=== PATIENT | female | born 1960 | race Caucasian/White ===

== ENCOUNTER 2020-01-22 06:50 | Observation (INO) ==
[2020-01-22] MEDS ORDERED: fentaNYL citrate 100 MCG/2 ML VIAL ONE (07:21)
[2020-01-22] MEDS ORDERED: HEPARIN (PORCINE) 1000 UNIT/ML 10 ML (CATH LAB USE ONLY) ONE (07:21)
[2020-01-22] MEDS ORDERED: NiCARDipine HCL INJ 2.5 MG/ML 10 ML AMP ONE (07:21)
[2020-01-22] MEDS ORDERED: NITROGLYCERIN/D5W 100MCG/ML 20ML SYR ONE (07:22)
[2020-01-22] MEDS ORDERED: MIDAZOLAM HCL 1 MG/ML 2ML VIAL ONE (07:22)
--- NOTE | 2020-01-22 07:42 | History & Physical Report ---
Date of Service January 22, 2020 Assessment & Plan (1) Abnormal stress echocardiogram: (2) Chest pain: (3) Diabetes: The patient is here today for cardiac catheterization. I have explained the risk, benefit and intent of the procedure to her including the potential for catheter-based intervention such as balloon angioplasty or intracoronary stent. She understands the procedure and we will proceed this morning for completion. History of Present Illness Primary Care Provider: Sharon Caldera MD This is a 59-year-old diabetic female who is been experiencing chest pain for several months. In September she underwent an exercise stress echocardiogram with reduced exercise performance and an equivocal study. She then went on to have a cardiac CT angios performed which showed calcified coronary arteries however the CT FFR could not be completed because of artifact. There was some delay in proceeding to cardiac catheterization due to COVID however, she is here today to have that procedure completed. She is still experiencing some dyspnea on exertion and chest discomfort with activity but it has not progressed. She denies orthopnea, lower extremity edema, heart palpitations or tachycardia. Allergies Allergy/AdvReac Type Severity Reaction Status Date / Time cefprozil [From Cefzil] Allergy Hives Verified 01/22/20 07:13 ciprofloxacin Allergy Hives Verified 01/22/20 07:13 Iodinated Contrast Media Allergy Hives Verified 01/22/20 07:13 [Iodinated Contrast- Oral and IV Dye] lisinopril Allergy Cough Verified 01/22/20 07:13 meloxicam [From Mobic] AdvReac Unknown Verified 01/22/20 07:13 Home Medications Home Medications Medication Instructions Recorded Confirmed Type atorvastatin 40 mg tablet 40 mg PO DAILY #90 tab 04/09/19 01/22/20 Rx metformin 500 mg tablet,extended 1,000 mg PO BID #360 tab 04/09/19 01/22/20 Rx release 24 hr levothyroxine 50 mcg tablet 50 mcg PO DAILY #90 tab 07/02/19 01/22/20 Rx cyclobenzaprine 10 mg tablet 10 mg PO TID PRN #90 tab 09/19/19 01/22/20 Rx losartan 50 mg tablet 50 mg PO DAILY #90 tab 10/02/19 01/22/20 Rx ipratropium 20 mcg-albuterol 100 1 puffs INH Q4H #3 ea 10/15/19 01/22/20 Rx mcg/actuation mist for inhalation amiloride 5 mg tablet 10 mg PO DAILY #180 tab 12/19/19 01/22/20 Rx metoprolol tartrate 25 mg tablet 25 mg PO BID #180 tab 12/19/19 01/22/20 Rx pantoprazole 40 mg tablet,delayed 40 mg PO DAILY #90 tab 12/19/19 01/22/20 Rx release escitalopram oxalate 5 mg tablet 5 mg PO DAILY #90 tab 12/24/19 01/22/20 Rx blood sugar diagnostic ea 01/08/20 01/08/20 History hydrocodone 5 mg-acetaminophen 325 1 tab PO TID PRN #90 tab 01/08/20 01/22/20 Rx mg tablet lancets 33 gauge ea 01/08/20 01/08/20 History ferrous sulfate [iron] 65 mg PO DAILY 01/22/20 01/22/20 History magnesium oxide 400 mg PO DAILY 01/22/20 01/22/20 History omega 2-ses-mfy-fish oil [Fish Oil] 1 cap PO DAILY 01/22/20 01/22/20 History vitamin P56-vysvd acid 1 tab PO DAILY 01/22/20 01/22/20 History Past Med/Surg History Medical History Acid reflux (Chronic) Allergic conjunctivitis (Chronic) Allergic rhinitis (Chronic) Anxiety (Chronic) Asthma (Chronic) Basal cell carcinoma of skin (Chronic) Benign essential hypertension (Chronic) Bulging lumbar disc (Chronic) Cervicalgia (Chronic) Complicated migraine (Chronic) Diabetes mellitus (Chronic) Diverticulosis of colon (Chronic) Hyperlipidemia (Chronic) Hypomagnesemia (Chronic) Hypothyroidism (Chronic) Left ankle pain Migraine headache (Chronic) Obstructive sleep apnea (Chronic) Surgical History H/O arthroscopic knee surgery H/O colonoscopy H/O dilation and curettage History of nasal surgery S/P cholecystectomy S/P hysterectomy Family History Mother Alzheimer disease Colonic polyp Brother Colonic polyp Father COPD (chronic obstructive pulmonary disease) Social History Beliefs That Will Affect Care: None marital status: Current Living Situation: Spouse Feels Safe at Home: Yes Safety Concerns: Feels Safe At This Time Smoking Status: Never smoker Hx Alcohol Use: Yes Alcohol Intake Frequency: Rarely Hx Substance Use: No Dental Care, Regularly: Yes Physical Activity Frequency: Does not Exercise Seatbelt Use: always Review of Systems Review of Systems: All systems reviewed & are unremarkable except as noted in HPI & below Nothing additional Physical Exam Physical Exam: General: no acute distress and stated age Head: normocephalic, no masses, lesions, tenderness or abnormalities Eyes: conjunctiva are pink and non-injected, sclera clear Neck: supple, no adenopathy, no bruits, normal jugular venous pulse, no hepa tojugular reflux Chest: normal shape and normal respiratory effort Lungs: clear to auscultation and percussion Cardiac Exam: - regular rate & rhythm, no murmurs gallops or rubs - normal S1, normal S2 Pulses: 2(+) throughout Abdomen: abdomen soft, non-tender, no abnormal masses and no hepatosplenomegaly Musculoskeletal: no gait disturbance, no joint inflammation, no deforming arthritis Extremities: no edema and no cyanosis Neuro: grossly normal exam Results & Data Results & Data ([facility]) Vital Signs (Past 12 Hours) Vital Signs Temp Pulse Resp BP Pulse Ox 01/22/20 06:59 36.9 C 77 17 183/88 H 98 Medications Administered Medications atorvastatin 40 mg tablet 40 mg PO DAILY #90 tab 04/09/19 [Rx Confirmed 01/22/20] metformin 500 mg tablet,extended release 24 hr 1,000 mg PO BID #360 tab 04/09/19 [Rx Confirmed 01/22/20] levothyroxine 50 mcg tablet 50 mcg PO DAILY #90 tab 07/02/19 [Rx Confirmed 01/22/20] cyclobenzaprine 10 mg tablet 10 mg PO TID PRN #90 tab 09/19/19 [Rx Confirmed 01/22/20] losartan 50 mg tablet 50 mg PO DAILY #90 tab 10/02/19 [Rx Confirmed 01/22/20] ipratropium 20 mcg-albuterol 100 mcg/actuation mist for inhalation 1 puffs INH Q4H #3 ea 10/15/19 [Rx Confirmed 01/22/20] amiloride 5 mg tablet 10 mg PO DAILY #180 tab 12/19/19 [Rx Confirmed 01/22/20] metoprolol tartrate 25 mg tablet 25 mg PO BID #180 tab 12/19/19 [Rx Confirmed 01/22/20] pantoprazole 40 mg tablet,delayed release 40 mg PO DAILY #90 tab 12/19/19 [Rx Confirmed 01/22/20] escitalopram oxalate 5 mg tablet 5 mg PO DAILY #90 tab 12/24/19 [Rx Confirmed 01/22/20] blood sugar diagnostic ea 01/08/20 [History Confirmed 01/08/20] hydrocodone 5 mg-acetaminophen 325 mg tablet 1 tab PO TID PRN #90 tab 01/08/20 [Rx Confirmed 01/22/20] lancets 33 gauge ea 01/08/20 [History Confirmed 01/08/20] ferrous sulfate [iron] 65 mg PO DAILY 01/22/20 [History Confirmed 01/22/20] magnesium oxide 400 mg PO DAILY 01/22/20 [History Confirmed 01/22/20] omega 8-xxj-vmu-fish oil [Fish Oil] 1 cap PO DAILY 01/22/20 [History Confirmed 01/22/20] vitamin D32-wnruo acid 1 tab PO DAILY 01/22/20 [History Confirmed 01/22/20] Home Medications Sodium Chloride (Nss 1000ml) 1,000 mls @ 1 mls/hr IV .Q24H ENMA Stop: 02/21/20 07:44
[2020-01-22] MEDS ORDERED: SODIUM CHLORIDE 0.9% 1000ML 1,000 ML IV SCH ×2 (07:45→09:30)
--- NOTE | 2020-01-22 08:54 | Cardiac Catheterization ---
Date of Service January 22, 2020 Cardiac Cath Report Cardiac Cath Report Procedure: 1. Coronary angiography History: This is a 59-year-old diabetic female who began to have chest pain and dyspnea on exertion in September. She had an equivocal exercise stress test due to low workload. She went on to have a cardiac CT Angio which was limited by calcified coronary arteries and an equivocal FFR. She has been referred for cardiac catheterization. Procedure summary: After informed consent was obtained. The patient was brought to the cardiac catheterization lab where she was prepped and draped in the usual manner for a right transradial approach. Preformed 5 Icelandic diagnostic catheters were utilized for the coronary angiograms. Following the procedure the patient underwent coronary intervention and then was admitted in stable condition. ACC data: Start time 8:15 AM End time 8:30 AM Opening aortic pressure 169/105 Closing aortic pressure 162/103 LV pressurevalve not crossed Sedation 1 mg intravenous Versed IV fluid 29 cc normal saline Contrast 64 cc Optiray Fluoroscopy time 2.2 minutes Radiation 770 mGy DAP 52.8 Codominant system AUC score 7 Coronary angiography: Selective injections of the left coronary artery revealed the left main trunk to be patent. There is evidence of calcium in the proximal and mid LAD. In the midportion of the LAD there is an 80% concentric stenosis and then more distal there is a 40 to 60% stenoses with the remainder the artery being patent. The LAD gives off several large septal branches as well as at least 2 diagonal branches. The left circumflex artery consists of 2 large marginal branches the second of which supplies a portion of the posterior septum. Left circumflex artery is widely patent. Selective injections of the right coronary artery reveal minor luminal irregularities with the artery being widely patent. There is evidence of collateral flow to the LAD from the distal right coronary artery. This is a codominant system. Summary: The patient has a high-grade stenosis within the proximal or mid LAD as well as a second stenosis which does not appear as tight in the mid to distal portion of the LAD. The significance of the stenoses is evident by the collateral flow from the distal right coronary artery to the LAD. Recommendations: Recommendations are for coronary intervention on the LAD.
[2020-01-22] MEDS ORDERED: CLOPIDOGREL BISULFATE 300 MG TAB ONE (09:12)
--- NOTE | 2020-01-22 09:15 | Post Anesthesia Assessment ---
Date of Service January 22, 2020 Post Sedation Assessment Vital Signs Temp Pulse Resp BP Pulse Ox 01/22/20 06:59 98.4 F 77 17 183/88 H 98 Recovery Score Activity: Moves 4 extremities Respiration: Deep Breath/Cough Circulation: +/-20% PreAnes Value Consciousness: Fully Awake Oxygen Saturation: O2 needed for >90% Discharge Sedation Level of Care: Fast Track Phase II Post Sedation Plan On clinical assessment, the patient appears to have tolerated the sedation without complications. Patient is recovering as anticipated. Patient will continue to be monitored by nursing and may be discharged when sedation discharge criteria are met per below protocol. Upon Completions of procedure up to 15 minutes continue every 5 minute vital signs and the P.A.R. score; then discharge to a Phase I or Fast Track to Phase II per the following guidelines: * Discharge Patient to appropriate Phase II area if PAR is 8 or greater or return to pre- procedure baseline. The post - procedure orders will be as directed. * If PAR score is less than 8 or not return to pre-procedure baseline then patient will follow Phase I monitoring till PAR is reached for Phase II. The Phase I may be done in procedure room or may call to secure a Phase I area. * If naloxone or flumazenil are used for reversal, hold in Phase I for continued monitoring from when last reversal dose was given for a minimum of 60 minutes or longer pending the nurse and/or physician discretion of patient condition before discharge to Phase II. Please call the Sedation Physician to re-evaluate and complete post-note for discharge to Phase II area. Do NOT discharge from procedure sedation or Phase 1 until post- sedation evaluation note is complete by procedure /sedation MD Sedation Discharge Instructions to be given to the patient at discharge to home.
[2020-01-22] MEDS ORDERED: NITROGLYCERIN SL 0.4 MG/TAB TAB SL PRN (09:16)
[2020-01-22] MEDS ORDERED: ONDANSETRON INJ 2 MG/ML 2 ML VIAL IV PRN (09:16)
--- NOTE | 2020-01-22 09:26 | Cardiac Catheterization ---
[facility] Data: Business Unit Director Cardiac Status Clinical evaluation leading to the procedure CAD Presenation: Positive Stress Test Anginal Classification: CCS III Heart Failure: No Cardiogenic Shock within 24 Hours: No Cardiac Arrest within 24 Hours: No Imaging Studies Past 6 Months: Yes Stress Studies Past 6 Months: Yes Stress Echocardiogram: Yes - Indeterminant Diagnostic Physicians Name: Adriano Beebe MD Status: Elective Closure Device Percutaneous Entry Location: Radial Closure Device: Radial Band Recommendations: PCI without planned CABG PCI Indication: + Stress Test and Angina despite med therapy Lesion Segment Name: Mid LAD Culprit Artery: Yes Stenosis Prior to Rx (%): 75 Chronic Total Occlusion: No IVUS: No FFR: No Pre-Procedure CATHY Flow: 3 Previously Treated Lesion: No Lesion Complexity: Non-High/Non-C Lesion Length (mm): 12 Thrombus Present: No Bifurcation Lesion: No Guidewire Across Lesion: Stenosis Post-Procedure (%): 0 Post-Procedure CATHY Flow: 3 Devices(s) Deployed: Yes Yes Intraprocedure Events Significant Disection: No Perforation: No Cardiac Cath Procedure Full Procedure Date January 22, 2020 Pre-Procedure Diagnosis Pre-Procedure Diagnosis: Angina and Positive Stress Test AUC Score AUC Score: 7 Post-Procedure Diagnosis Post-Procedure Diagnosis: Severe CAD and Successful PCI Procedure(s) Performed Procedure(s) Performed: Coronary Angiography and Drug Eluting Stent Construction Teacher Adriano Beebe MD Grades 9 12 Tutor(s) Oli Estimated Blood Loss Estimated Blood Loss: 10 Medication(s) Medication(s): Clopidogrel, Fentanyl, Heparin, Nicardipine, Nitroglycerin and Versed Summary of Findings Indication: Indeterminate stress test, coronary CTA Access: 6 Fr slender right radial artery Catheters: EBU 3.5 guide Findings: For full details of patient's coronary angiography please see cath report dictated by Dr. Ovalle. Briefly, patient found to have severe single vessel disease with a 70 to 80% ca lcified mid LAD stenosis. Decision to proceed with PCI. -- PCI -- Antithrombotic therapy: Heparin, clopidogrel Procedure: Left main cannulated with EBU 3.5 guide BMW wire passed across lesion into distal vessel Mid LAD lesion predilated with 2.5 compliant balloon Dilated lesion stented with 3.0 x 18 mm Pathfork drug-eluting stent Stent post-dilated with 3.5 noncompliant balloon IC vasodilators administered for spasm Post procedure CATHY 3 flow, stent well expanded with minimal residual stenosis and no apparent cardiac complications. Arterial Closure: TR band Summary: 1. Successful PCI of mid LAD with single drug-eluting stent (3.0 x 18 mm Pathfork; postdilated with 3.5 NC). Recommendations: To PCU for continued monitoring Loaded with clopidogrel 600 mg in Business Unit Director Continue dual-antiplatelet therapy for at least 6 months Continue statin, and ASCVD risk factor modification Consult cardiac Rehab Hemodynamics Rest Ao:: 145/79/111 Final Ao: 125/74/101 LV: -- Recommendations Recommendations: PCI without planned CABG Specimens Specimens: None Radiation Exposure (mGy) 1541 Contrast (mls) 50 Fluids (cc crystalloids) Fluids (cc crystalloids): 70 Anesthesia Moderate Procedural Complication(s) None Disposition PCU I attest to the content of the Intraoperative Record and any orders documented therein. Any exceptions are noted below. [facility] Card Cath Procedure Codes Moderate Sedation Procedure 1: Sedation/Anesthesia: 57682 Mod Sedation by a different physician ;Init15 Min Child Age 5&Up Procedure 2: Sedation/Anesthesia: 81713 Mod Sedation by a different physician;Ea Additional 15 Minutes Stenting Procedure 1: Cardiovascular Stent Procedures: 19075 Perc transcatheter placement of intracoronary stent(s), with ang PG Care Time/CCT Total # of Minutes Spent Total Time Spent with Patient: Total time spent is greater than 50% in coordination of care (as documented) at patient's floor/unit and/or counseling patient:
[2020-01-22] MEDS ORDERED: IPRATROPIUM BROMIDE/ALBUTEROL respimat INH INH SCH (09:30)
[2020-01-22] MEDS ORDERED: CYCLOBENZAPRINE HCL 10 MG TAB PO PRN (14:39)
[2020-01-22] MEDS ORDERED: HYDROCODONE/ACETAMOPHEN 5/325MG TAB PO PRN (14:42)
[2020-01-22] MEDS: LOSARTAN POTASSIUM 50 MG TAB PO SCH (15:16)
[2020-01-22] MEDS: IPRATROPIUM BROMIDE HFA INHALER INH SCH ×3 (16:34→23:54)
[2020-01-22] MEDS: ALBUTEROL HFA 8 GM INHALER INH SCH ×3 (16:34→23:54)
[2020-01-22] MEDS: METOPROLOL TARTRATE 25 MG TAB PO SCH (20:10)
[2020-01-22] MEDS ORDERED: ACETAMINOPHEN 325 MG TAB PO PRN (20:17)
--- NOTE | 2020-01-22 22:12 | Electrocardiogram Report ---
Test Reason : Blood Pressure : / mmHG Vent. Rate : 073 BPM Atrial Rate : 073 BPM P-R Int : 126 ms QRS Dur : 090 ms QT Int : 400 ms P-R-T Axes : 040 016 034 degrees QTc Int : 440 ms Normal sinus rhythm Normal ECG No previous ECGs available Confirmed by Ronald Travis ([id number]) on 01/22/2020 10:11:28 PM Referred By: Vinnie Ovalle Confirmed By:Ronald Travis
[2020-01-23] MEDS: IPRATROPIUM BROMIDE HFA INHALER INH SCH ×2 (04:39→08:20)
[2020-01-23] MEDS: ALBUTEROL HFA 8 GM INHALER INH SCH ×2 (04:39→08:21)
[2020-01-23 05:43] LABS: Basophils # (auto) 0.01 K/uL (0-0.2); Basophils % (auto) 0.1 %; Eosinophils # (auto) 0.03 K/uL (0-0.5); Eosinophils % (auto) 0.2 %; Hematocrit (blood only) 38.6 % (37-47); Hemoglobin 12.5 g/dL (12.0-16.0); Immature Granulocytes # (auto) 0.07 K/uL (0.00-0.02); Immature Granulocytes % (auto) 0.5 %; Lymphocytes # (auto) 3.61 K/uL (1.2-3.4); Lymphocytes % (auto) 24.1 %; Mean Corpuscular Hemoglobin 29.6 pg (25-34); Mean Corpuscular Hgb Conc 32.4 g/dL (32-36); Mean Corpuscular Volume 91.3 fL (80-100); Mean Platelet Volume 9.7 fL (7.4-10.4); Monocytes # (auto) 1.42 K/uL (0.11-0.59); Monocytes % (auto) 9.5 %; Neutrophils # (auto) 9.83 K/uL (1.4-6.5); Neutrophils % (auto) 65.6 %; Platelet Count 345 K/uL (130-400); RDW Coefficient of Variation 13.1 % (11.5-14.5); RDW Standard Deviation 43.2 fL (36.4-46.3); Red Blood Count 4.23 M/uL (4.2-5.4); White Blood Count 14.97 K/uL (4.8-10.8)
[2020-01-23 06:21] LABS: BUN Creatinine Ratio 23.6 (10-20); Calcium 9.1 mg/dl (8.5-10.1); Creatinine Clr Calc Pharmacy 70.1 ml/min; Est GFR (African American) 74.6; Est GFR (Non-African American) 64.4
[2020-01-23] MEDS ORDERED: LEVOTHYROXINE SODIUM 50 MCG TABLET PO SCH (06:30)
[2020-01-23] MEDS: METOPROLOL TARTRATE 25 MG TAB PO SCH (08:13)
[2020-01-23] MEDS: LOSARTAN POTASSIUM 50 MG TAB PO SCH (08:14)
[2020-01-23] MEDS ORDERED: FERROUS SULFATE 325 MG TAB PO SCH (09:00)
[2020-01-23] MEDS ORDERED: MAGNESIUM OXIDE 400 MG TAB PO SCH (09:00)
[2020-01-23] MEDS ORDERED: AMILORIDE HCL 5 MG TAB PO SCH (09:00)
[2020-01-23] MEDS ORDERED: ESCITALOPRAM OXALATE 10 MG TAB PO SCH (09:00)
[2020-01-23] MEDS ORDERED: OMEGA-3 (PURIFIED FISH OIL) 1 GM CAP PO SCH (09:00)
[2020-01-23] MEDS ORDERED: CYANOCOBALAMIN 500 MCG TABLET (VITAMIN B-12) PO SCH (09:00)
[2020-01-23] MEDS ORDERED: PANTOprazole 40 MG TAB PO SCH (09:00)
[2020-01-23] MEDS ORDERED: CLOPIDOGREL BISULFATE 75 MG TAB PO SCH (09:00)
[2020-01-23] MEDS ORDERED: ASPIRIN 81 MG ECTAB PO SCH (09:00)
[2020-01-23] MEDS ORDERED: ATORVASTATIN 40 MG TAB PO SCH (09:00)
--- NOTE | 2020-01-23 10:18 | Discharge Summary ---
Date of Service January 23, 2020 Admission HPI Per Admitting Provider This is a 59-year-old diabetic female who is been experiencing chest pain for several months. In September she underwent an exercise stress echocardiogram with reduced exercise performance and an equivocal study. She then went on to have a cardiac CT angios performed which showed calcified coronary arteries however the CT FFR could not be completed because of artifact. There was some delay in proceeding to cardiac catheterization due to COVID however, she is here today to have that procedure completed. She is still experiencing some dyspnea on exertion and chest discomfort with activity but it has not progressed. She denies orthopnea, lower extremity edema, heart palpitations or tachycardia. Admission Exam Per Admitting Provider General: no acute distress and stated age Head: normocephalic, no masses, lesions, tenderness or abnormalities Eyes: conjunctiva are pink and non-injected, sclera clear Neck: supple, no adenopathy, no bruits, normal jugular venous pulse, no hepatojugular reflux Chest: normal shape and normal respiratory effort Lungs: clear to auscultation and percussion Cardiac Exam: - regular rate & rhythm, no murmurs gallops or rubs - normal S1, normal S2 Pulses: 2(+) throughout Abdomen: abdomen soft, non-tender, no abnormal masses and no hepatosplenomegaly Musculoskeletal: no gait disturbance, no joint inflammation, no deforming arthritis Extremities: no edema and no cyanosis Neuro: grossly normal exam Principal Diagnosis Coronary artery disease Discharge Data Allergies Allergy/AdvReac Type Severity Reaction Status Date / Time cefprozil [From Cefzil] Allergy Hives Verified 01/22/20 07:13 ciprofloxacin Allergy Hives Verified 01/22/20 07:13 Iodinated Contrast Media Allergy Hives Verified 01/22/20 07:13 [Iodinated Contrast- Oral and IV Dye] lisinopril Allergy Cough Verified 01/22/20 07:13 meloxicam [From Mobic] AdvReac Unknown Verified 01/22/20 07:13 Consultations 01/22/20 09:17 Consult Cardiac Rehabilitation Routine Procedures Performed Operation Date: 01/22/20 08:00 Actual Procedures s Drug Eluting Stent SGl Vessel - Tushar Beebe MD p Cath, Coronaries ONLY (no LV) - Vinnie Ovalle DO s Cineradiography w/Routine Exam - Vinnie Ovalle DO Ordered Studies 01/22/20 06:29 CL Cath Imgs for PACS use only Routine Hospital Course (1) Abnormal stress echocardiogram: (2) Chest pain: (3) Diabetes: The patient underwent a cardiac catheterization followed by a drug-eluting stent placement in the LAD. She had a on eventful night and is ready for discharge. Total Time Total Time Spent Total Time Spent (In Minutes): 30 minutes Total Time Includes: Examination of the Patient, Discharge Planning and Medication Reconciliation Discharge Plan Discharge Items Reason For Visit: Chest Pain, Abnormal CT Medications and DC Order Prescriptions: No Action atorvastatin 40 mg tablet 40 mg PO DAILY Qty: 90 RF: 3 metformin 500 mg tablet extended release 24 hr 1,000 mg PO BID Qty: 360 RF: 3 levothyroxine 50 mcg tablet 50 mcg PO DAILY Qty: 90 RF: 3 losartan 50 mg tablet 50 mg PO DAILY Qty: 90 RF: 3 Combivent Respimat 20-100 mcg/actuation mist 1 puffs INH Q4H Qty: 3 RF: 3 amiloride 5 mg tablet 10 mg PO DAILY Qty: 180 RF: 3 pantoprazole 40 mg tablet,delayed release (DR/EC) 40 mg PO DAILY Qty: 90 RF: 3 metoprolol tartrate 25 mg tablet 25 mg PO BID Qty: 180 RF: 3 escitalopram oxalate 5 mg tablet 5 mg PO DAILY Qty: 90 RF: 3 (DME) lancets [OneTouch Delica Lancets] 33 gauge misc See Dose Instructions .ROUTE .MEDSUPPLY RF: 0 (DME) OneTouch Verio test strips Strip See Dose Instructions .ROUTE .MEDSUPPLY RF: 0 hydrocodone-acetaminophen 5-325 mg tablet 1 tab PO TID PRN (Reason: pain) Qty: 90 RF: 0 cyclobenzaprine 10 mg tablet 10 mg PO TID PRN (Reason: muscle spasm) Qty: 90 RF: 3 ferrous sulfate [iron] 325 mg (65 mg iron) Tablet 65 mg PO DAILY RF: 0 vitamin U72-cqyuw acid 0.5-1 mg Tablet 1 tab PO DAILY RF: 0 omega 9-wcm-wzs-fish oil [Fish Oil] 1,000 mg (120 mg-180 mg) Capsule 1 cap PO DAILY RF: 0 magnesium oxide 400 mg magnesium Capsule 400 mg PO DAILY RF: 0 Admission Data Admit Date/Time: 01/22/20 09:19 Attending Provider: Vinnie Ovalle Admit Provider: Tushar Beebe Primary Care Provider: Sharon Caldera Other Interventions: Discharge Summary Assessment (RN) Last Done: 01/23/20 09:54
[2020-01-23] MEDS ORDERED: ENOXAPARIN INJ 40 MG/0.4 ML SYR SQ SCH (10:30)
== END 2020-01-23 12:16 | disposition home or self-care (01) ==
LOC: CC 06:50 → 2S 06:50
PROC: CLB.CCO (2020-01-22 08:00)